=== PATIENT | male | born 1945 | race Caucasian/White ===

== ENCOUNTER 2025-09-05 08:11 | Emergency (ER) | payer MEDICARE ==
[~2025-09-05] VITALS: Ht 177.8 cm; Wt 74.8 kg
[~2025-09-05 08:11] MED LIST: ALPHAGAN P5 ML OU; AMLODIPINE BESY10 MG PO; ATORVASTATIN CA20 MG PO
[2025-09-05] MEDS ORDERED: SODIUM CHLORIDE FLUSH 10 ML SYR IV PRN (08:30)
[2025-09-05 08:37] VITALS: TEMP 97.7
[2025-09-05 08:50] LABS: BASOPHILS % 1.0 % (0.0-1.0); EOSINOPHILS % 3.2 % (0.0-6.0); LYMPHOCYTES % 16.0 % (18.0-39.1); MONOCYTES % 10.7 % (4.4-11.3); NEUTROPHILS % 68.9 % (38.7-80.0); RED CELL DISTRIBUTION WIDTH 12.3 % (11.7-14.4)
[2025-09-05 09:06] LABS: INR 1.03
[2025-09-05] MEDS: MECLIZINE HCL 12.5 MG TAB PO ONE (09:13)
[2025-09-05 09:27] LABS: EST GLOMERULAR FILTRATION RATE 51.0 ML/MIN (>=60)
[2025-09-05 10:39] LABS: LEUKOCYTE ESTERASE ,URINE NEGATIVE (NEGATIVE); PROTEIN,URINE DIPSTICK NEGATIVE (NEGATIVE); URINE UROBILINOGEN 0.2 mg/dL (0.2 - 1)
[2025-09-05 10:41] LABS: EPITHELIAL CELLS,URINE FEW /LPF; WBC,URINE (MAN) 0-5 /HPF (0-5)
[2025-09-05] MEDS: SODIUM CHLORIDE 0.9% 1000ML 1,000 ML IV ONE (11:05)
[2025-09-05 12:33] VITALS: PULSE 59; RESP 15; O2SAT 100
[2025-09-05] MEDS ORDERED: MECLIZINE HCL25 MG PO (12:41)
== END 2025-09-05 12:57 | disposition home or self-care (01) ==
LOC: ER 08:15
DX: H81.399 Other peripheral vertigo, unspecified ear (principal); R11.0 Nausea
CPT/HCPCS: 36415; 70450; 71045; 80053; 81001; 83880; 84484; 85025; 85610; 85730; 93005; 94760; 99284; J7030; J8597